=== PATIENT | female | born 1960 | race Caucasian/White ===

== ENCOUNTER → 2020-10-01 15:14 | Outpatient (CLI) | payer BC, SELFPAY ==
[2020-10-01 16:43] LABS: COVID19 -Nasal RAPID Negative (Negative)
== END ==
PROVIDERS: Family Provider Family Medicine; PCP Nurse Practitioner; Visit Provider Obstetrics & Gynecology
DX: Z01.812 Encounter for preprocedural laboratory examination (principal); Z20.822 Contact with and (suspected) exposure to COVID-19
CPT/HCPCS: 87635

== ENCOUNTER 2020-10-02 07:11 | Day surgery (SDC) | payer BC, SELFPAY ==
[2020-09-26 10:23] VITALS: BMI 23.0
[2020-10-02] VITALS (7 sets, daily range): BP systolic 95–134; BP diastolic 62–89; PULSE 64–79; RESP 10–18; TEMP 36.2–37.2; O2SAT 93–97; BMI 23.0
--- NOTE | 2020-10-02 | PATH_ITS ---
[facility] Accession Number: [id number] . 01 Material submitted: . cervix - CONE BIOPSY OF CERVIX . 01 Clinical history: . SUTURE AT 12 O'CLOCK . 02 Diagnosis: Cone Biopsy of Cervix: Patchy involvement by low-grade squamous intraepithelial lesion / DESHAWN-1 (3-6 and 9-12 o'clock quadrants). No high-grade dysplasia or invasive tumor identified. The apparent electrocauterized margins are negative for dysplasia. Negative for p16 block immunostaining. [facility] 10/05/2020 1619 Local . 02 Electronically signed: . Samantha Batista MD, Pathologist NPI- [id number] . 01 Gross description: . The specimen is received in formalin, labeled cone biopsy of cervix and consists of a 1.2 x 1.0 cm aguilar-pink smooth portion of ectocervix excised to a depth of 0.5 cm with a 0.5 x 0.1 cm os. There is a suture designated 12 o'clock. The endocervical margin is inked blue. The ectocervical margin is inked black. The specimen is radially sectioned and entirely submitted. . A1: Cervix, 12-3 o'clock. A2: Cervix, 3-6 o'clock. A3: Cervix, 6-9 o'clock. A4: Cervix, 9-12 o'clock. (EA:[id number]) /V 10/03/2020 1006 Local . 02 Microscopic: . An immunostain for p16 is performed on blocks A1, A2, and A4 to evaluate the cells of interest, and are all negative for block immunostaining. The control stain showed appropriate reactivity. . The absence of p16 block immunostaining mitigates against the presence of high risk HPV DNA in this biopsy. . * This test was developed and its performance characteristics determined by [facility]. It has not been cleared or approved by the U.S. Food and Drug Administration. The FDA has determined that such clearance or approval is not necessary. This test is used for clinical purposes. It should not be regarded as investigational or for research. . 02 Pathologist provided ICD-10: N87.0, R87.810 . 02 CPT . 909482, K11506, G36709 Performed at: 01 [facility] [address] [id number] MD Cameron Mcmillan MD Phone: [phone] Performed at: 02 [facility] [address] [place] [id number] MD Yolande Mcclellan MD Phone: [phone]
[2020-10-02] MEDS: LACTATED RINGERS 1,000 ML 42 ML IV (07:37)
--- NOTE | 2020-10-02 08:18 | PM.HP.1 ---
History of Present Illness History of Present Illness Date Patient Seen: 10/02/20 Time Patient Seen: 08:18 Chief complaint: SDC Narrative: Patient is a 59-year-old 2 para 2 with cervical dysplasia here for LEEP cone biopsy of the cervix Patient History Surgical History (Updated 06/30/17 @ 05:04 by Conversion Provider) History of bladder suspension procedure Status post bunionectomy Status post tubal ligation Family & Social History Social History: household members children Tobacco & Substance use: Tobacco type cigarettes Smoking Status Never smoker alcohol intake frequency a few times a week Substance Use Type does not use Meds Home Medications and Allergies Home Medications Medication Instructions Recorded Confirmed Type diltiazem HCl 240 mg capsule,24 240 mg PO DAILY #0 10/15/12 10/02/20 History hr,extended release lansoprazole 15 mg capsule,delayed 15 mg PO DAILY 08/21/20 10/02/20 History release (Prevacid) Allergies Allergy/AdvReac Type Severity Reaction Status Date / Time No Known Drug Allergies Allergy Verified 10/02/20 07:21 Exam Vital Signs (past 8 hours): - 10/02/20 07:25 Temperature 99.0 F Pulse Rate 79 Respiratory Rate 16 Blood Pressure 134/89 Pulse Oximetry 97 Oxygen Delivery Method Room Air Narrative Exam Narrative: HEENT: No thyromegaly, no anterior cervical or supraclavicular lymphadenopathy. Lungs:Clear to auscultation bilaterally, no wheezes. Cardiovascular: Regular rate and rhythm, no murmurs, rubs, or gallops. Abdomen: No scars. No hepatosplenomegaly. No masses palpable. External genitalia: Normal Vagina: Normal Cervix: Normal Bimanual exam: 6 week size anteverted uterus, no adnexal masses or tenderness Assessment & Plan Assessment & Plan narrative: Assessment: 59-year-old 2 para 2 with cervical dysplasia Cannot rule out high-grade dysplasia on endocervical curettage Plan: LEEP cone biopsy of the cervix The risks, benefits, and alternatives to the procedure were explained to the patient. The risks including bleeding and infection. She understands these risks and agrees to proceed. A full par Q was held and consent form was signed. COVID-19 COVID-19 status: Negative Result date/Date tested (Pos, Neg/Pending): 10/01/20 Time Spent With Patient Time with patient: less than 15 minutes
--- NOTE | 2020-10-02 08:21 | PM.PREOP ---
Pre-operative Note COVID-19 COVID-19 status: Negative Result date/Date tested (Pos, Neg/Pending): 10/01/20 Interval Note History & Physical reviewed/Exam performed by Physician: Yes Changes to H&P: No H&P completed within 30 days and has changed as indicated here:: 10/02/20
--- NOTE | 2020-10-02 08:50 | SUR.OPER ---
Lithotomy on padded OR bed, head on pillow, arms secured on padded arm boards at <90 degrees abduction. Legs secured in padded yellow fins stirrups.
[2020-10-02] MEDS: POTASSIUM IODIDE/IODINE 473 ML SOLUTION TOP (08:56)
--- NOTE | 2020-10-02 09:02 | P.OP_ITS ---
Operative Date/Time/Diagnoses Date of procedure: 10/02/20 Time of procedure: 09:02 Pre-op diagnosis: Cervical dysplasia, cannot rule out high-grade on endocervical curettage Post-op diagnosis: same Procedure & Clinicians Procedure: Procedures Operation Date: 10/02/20 08:15 Actual Procedure Side Surgeon jaylan Urias BX Not Applicable Nubia Hammonds MD Indications: Cervical dysplasia Cannot rule out high-grade on endocervical curettage Surgeon: Nubia Hammonds Anesthesia Type: General (LMA) Operative Notes Findings: Lugol's light areas surrounding the endocervix Closure Type: not applicable Specimen(s): other (Cone biopsy of the cervix, stitch at 12 o'clock) Estimated blood loss (mL): 5 Blood products transfused: none Procedure in detail: After informed consent was obtained, the patient was taken to the operating room where she was placed in the dorsal supine position. After adequate LMA general anesthesia was achieved, she was placed in the dorsal lithotomy position, and prepped and draped in the usual sterile fashion. A time -out was performed. A plastic coated bivalve speculum was placed into the vagina and a plastic coated single-tooth tenaculum was placed on the anterior lip of the cervix. The cervix was coated with Lugol solution. There were no Lugol's light areas on the ectocervix, but there were Lugol's light areas in the endocervical canal. Using the 1.5 cm loop, a loop cone biopsy of the cervix was performed including the endocervical canal. The ball cautery was used for hemostasis. The cone biopsy was tagged at 12:00 p.m. with a stitch. The plastic coated single-tooth tenaculum was removed from the anterior lip of the cervix. The plastic coated bivalve speculum was removed from the vagina. Of note, 3 sources of suction were used. The first was attached to the Bovie, the second was attached to the plastic coated speculum, and the third was a hand- held suction. Sponge, lap, and instrument counts were correct x2. The patient tolerated the procedure well, and was taken to PACU in stable condition. Complications: none Post-operative Condition: stable Disposition: PACU Plan for aftercare: Home after recovery
[2020-10-02] MEDS: KETOROLAC 30 MG/ML VIAL IV (09:15)
[2020-10-02] MEDS: ONDANSETRON 4 MG/2 ML INJ IV (09:29)
== END 2020-10-02 10:00 | disposition home or self-care (01) ==
PROVIDERS: Family Provider Family Medicine; PCP Nurse Practitioner; Referring Provider Obstetrics & Gynecology; Visit Provider Obstetrics & Gynecology
PROC: 0UBC7ZZ Excision of Cervix, Via Natural or Artificial Opening (ICD-10-PCS; CPT 57522; principal; 2020-10-02 08:15)
DX: N87.0 Mild cervical dysplasia (principal); R87.810 Cervical high risk human papillomavirus (HPV) DNA test positive; I10 Essential (primary) hypertension
CPT/HCPCS: 57522; J1100; J1885; J2250; J2405; J2704; J3010